=== PATIENT | female | born 1955 | race Hispanic/Latino ===

== ENCOUNTER 2018-11-03 09:02 | Outpatient (CLI) | payer OTHER ==
--- NOTE | 2018-11-03 10:57 | ULT ---
LIMITED LEFT BREAST ULTRASOUND: DATE: 11/03/2018. PROVIDED CLINICAL HISTORY: Abnormal mammogram, palpable abnormality. FINDINGS: Limited sonographic interrogation was performed at the 4 o'clock position of the left breast in the r egion of palpable and mammographic concern. There is an irregular lobulated hypoechoic mass measurin g at least 4.7 cm in greatest dimension at the 4 o'clock position of the left breast. There are inte rnal foci of increased echogenicity corresponding to the calcifications seen on mammography in this r egion. Limited sonographic interrogation of the left axilla demonstrates abnormally enlarged axillary lymph nodes. IMPRESSION: BIRADS category 5 - highly suspicious for malignancy. Ultrasound-guided biopsy of the [address] o[address] lesion and axillary lymph node recommended. Results and recommendations discussed with the patien t and questions answered. CODE CR POS: OFF
--- NOTE | 2018-11-03 11:16 | ULT ---
ULTRASOUND GUIDED LEFT BREAST BIOPSY: ULTRASOUND GUIDED LEFT AXILLARY LYMPH NODE BIOPSY: PROVIDED CLINICAL HISTORY: Left breast mass. Enlarged left axillary lymph nodes. TECHNIQUE: Informed consent was obtained from the patient. The patient was placed on the sonography table, in t he supine position, and the areas overlying the enlarged left axillary lymph node and left breast mas s were marked on the skin surface. These areas were prepped and draped in the usual sterile manner. Attention was first turned to the outer left breast lesion. The soft tissues were infiltrated with 1 % buffered Lidocaine. Under continuous sonographic guidance, multiple core samples were obtained. S ubsequently, a biopsy clip deployment device was advanced adjacent to the lesion, under ultrasound gu idance, and a biopsy site marker was deployed. The needle was withdrawn. There were no immediate co mplications. Attention was next turned to the left axillary enlarged lymph node. The soft tissues overlying this region were infiltrated with 1% buffered Lidocaine. Under continuous sonographic guidance, a core bi opsy device was advanced adjacent to the lesion, and multiple core samples were obtained. Subsequent ly, ultrasound guidance was utilizing to place a biopsy site marker within the lymph node. The needl e was withdrawn, and hemostasis achieved. No immediate complications. IMPRESSION: Technically successful ultrasound-guided biopsies of the left breast mass and enlarged left axillary lymph node. Please correlate with histology results to follow. POS: OFF
== END 2018-11-03 09:03 | disposition home or self-care (01) ==
LOC: BICMAMMO 09:02
PROVIDERS: ATTEND Nurse Practitioner Adult Health
DX: C50.212 Malignant neoplasm of upper-inner quadrant of left female breast (principal)
CPT/HCPCS: 19083; 19084; 77066; 88305; 88361; G0279

== ENCOUNTER 2018-11-16 08:31 | Outpatient (CLI) | payer OTHER ==
[2018-11-16] MEDS ORDERED: Iopamidol 300 61% 100 ML VIAL FS ONE (09:00)
--- NOTE | 2018-11-16 12:15 | CT ---
CT OF CHEST, ABDOMEN, AND PELVIS PERFORMED WITH INTRAVENOUS CONTRAST ENHANCEMENT: History: Left breast cancer with evidence for axillary involvement by recent biopsy. Comparison: Ultrasound guided biopsy performed 11-03-18. FINDINGS: The lungs are clear of any infiltrative process. There is a right upper lobe posterior segment pulmon angelita nodule seen on Axial image 31 measuring only 2-3 mm in size. There is a second similar sized nodu le, Axillary image 40 and Coronal image 56 which is along the minor fissure; as well as an approximat selina 3 mm nodule, Axial image 46 and a 2-3 mm nodule Axial image 47 which appear to lie along the javed r fissure or very close to the major fissure. No other definite additional nodules are seen. There is no significant mediastinal or hilar lymphadenopathy. There are small right axillary lymph no kary. There are pathologically enlarged appearing left axillary nodes, one of the larger nodes measure s approximately 13 mm in short axis dimension. Left breast mass is also demonstrated. CT OF ABDOMEN PERFORMED WITH CONTRAST ENHANCEMENT: The liver shows no focal lesions. The spleen is within normal limits of size. Pancreas and gallbladde r regions are unremarkable. Right and left adrenal glands and right and left kidneys are normal in appearance. There is no signif icant periaortic or mesenteric lymphadenopathy seen. CT OF PELVIS PERFORMED WITH CONTRAST ENHANCEMENT: No adenopathy, mass, or free fluid. Small punctate calcification within the uterus is probably on the basis of a fibroid. Review of osseous structures show arthritic changes in the lumbar spine and scoliotic change. No lyti c or blastic bony changes. IMPRESSION: 1. Left breast mass with left axillary adenopathy. 2. Several tiny pulmonary nodules noted on the right. Some of these are pleural based. These measure in the 2-3 mm range, nonspecific, but would require follow up. POS: [facility]
== END 2018-11-16 08:32 | disposition home or self-care (01) ==
LOC: SCSCT 08:31
PROVIDERS: ATTEND Internal Medicine Hematology & Oncology
DX: C50.512 Malignant neoplasm of lower-outer quadrant of left female breast (principal); N63.20 Unspecified lump in the left breast, unspecified quadrant; R59.0 Localized enlarged lymph nodes; R91.8 Other nonspecific abnormal finding of lung field
CPT/HCPCS: 71260; 74177; Q9967

== ENCOUNTER 2018-11-17 12:19 | Outpatient (CLI) | payer OTHER ==
[2018-11-17 13:35] LABS: #Eosinphils 0.2 thou/uL (0.0-0.7); #Lymphocytes 1.1 thou/uL (1.20-3.40); #Monocytes 0.5 thou/uL (0.11-0.59); #Neutrophils 3.1 thou/uL (1.40-6.50); %Basophils 0.6 % (0.0-1.0); %Lymphocytes 21.3 % (21.0-51.0); %Monocytes 10.5 % (0.0-10.0); %Neutrophils 63.5 % (42.0-75.0); Hemoglobin 14.2 g/dL (12.0-16.0); Mean Corpuscular HGB CONC 33.7 g/dL (32.0-36.0); Mean Corpuscular Hemoglobin 33.2 pg (27.0-31.0); Mean Corpuscular Volume 98.7 fL (78.0-98.0); Mean Platelet Volume 7.2 fL (7.4-10.4); Platelet Count 307 thou/uL (130-400); RBC Distribution Width 11.5 % (11.5-14.5); Red Blood Cell (RBC) Count 4.27 mill/uL (4.20-5.40); White Blood Cell (WBC) Count 4.9 thou/uL (4.8-10.8)
--- NOTE | 2018-11-17 15:26 | RAD ---
CHEST TWO VIEWS: HISTORY: OR followup. FINDINGS: The lungs appear clear. Vascular markings are normal. The heart and mediastinum are unremarkable. The osseous structures are in unremarkable. IMPRESSION: Unremarkable chest. POS: [facility]
== END 2018-11-17 12:20 | disposition home or self-care (01) ==
LOC: LABBT 12:19
PROVIDERS: ATTEND Specialist
DX: Z01.818 Encounter for other preprocedural examination (principal); C50.919 Malignant neoplasm of unspecified site of unspecified female breast
CPT/HCPCS: 71046; 85025

== ENCOUNTER 2018-11-21 12:13 | Day surgery (SDC) | payer OTHER ==
[2018-11-17 13:07] VITALS: BMI 30.9
[2018-11-21] MEDS ORDERED: Ketorolac Tromethamine 30 MG/ML VIAL ONE (12:27)
[2018-11-21] MEDS ORDERED: Levofloxacin 500 mg/D5W 100 ml Premix Bag ONE (12:27)
[2018-11-21] MEDS ORDERED: PROPOFOL 200 MG/20 ML VIAL ONE (12:57)
[2018-11-21] MEDS ORDERED: Bupivacaine/Epinephrine 0.25% 30 ML VIAL ONE (14:45)
[2018-11-21] MEDS ORDERED: Lidocaine 2% PF 5 ML VIAL ONE (14:45)
[2018-11-21] MEDS ORDERED: Fentanyl 100 MCG/2 ML VIAL ONE (14:56)
[2018-11-21] MEDS ORDERED: Midazolam HCl 2 mg/2 ml Vial ONE (14:56)
--- NOTE | 2018-11-21 16:22 | RAD ---
CHEST ONE VIEW: HISTORY: Mediport placement. COMPARISON: 11/17/2018 FINDINGS: The cardiac silhouette is magnified by projection. The pulmonary vasculature is unremarkable. The m ediastinum is midline. A right subclavian Mediport is now in place with the tip overlying the superi or vena cava. No evidence of pneumothorax. IMPRESSION: Right subclavian Mediport is in good radiographic position. POS: [facility]
--- NOTE | 2018-11-22 10:01 | OP ---
DATE OF PROCEDURE: 11/21/2018 PREOPERATIVE DIAGNOSIS: Breast cancer. POSTOPERATIVE DIAGNOSIS: Breast cancer. PROCEDURE PERFORMED: Placement of right subclavian low-profile power compatible MediPort. ANESTHESIA: General endotracheal anesthesia. INDICATIONS: The patient is a 62-year-old female. She presents with a large left breast cancer and was taken to the operative room at this time for MediPort placement for neoadjuvant chemotherapy. DESCRIPTION OF OPERATION: Informed consent was obtained. The patient was taken to the operating room where total intravenous anesthesia was obtained with the patient in supine position. Right periclavicular area was prepped with ChloraPrep and draped in sterile fashion. Local anesthetic was infiltrated and a large-gauge needle was passed under the clavicle in the subclavian vein. Guidewire was passed through the needle and fluoroscopically confirmed to enter the superior vena cava. Additional local anesthetic was infiltrated and transverse incision was created based on needle insertion site. A subcutaneous pocket was dissected inferiorly. Introducer dilator was passed over the guidewire under fluoroscopic guidance. The guidewire and dilator were removed, and the catheter was passed through the introducer. The tip of the catheter was positioned at the atriocaval junction and the catheter was trimmed to the appropriate length and secured to the locking hub of the MediPort. The port was then placed in the subcutaneous pocket where it was secured to the pectoral fascia with 2 interrupted sutures of 3-0 Prolene. The incision was then closed in layers with 3-0 and 4-0 Monocryl. Additional local anesthetic was infiltrated. The port was cannulated with a Jerome needle and it aspirated blood freely and was flushed with heparinized saline. Dermabond was placed externally on the skin incision. There were no complications. Blood loss was negligible. The patient tolerated the procedure well and was taken to recovery room in stable condition. FINDINGS: I used a low-profile power compatible MediPort. The patient's anatomy was within normal limits and there were no problems during the procedure. The patient had normal external and internal anatomy. A low-profile port was selected and placed uneventfully into the right subclavian vein. There was essentially no blood loss during the procedure and no complications. Postprocedure chest x-ray shows good placement of the port and catheter. Job ID: [id number]
== END 2018-11-21 17:00 | disposition home or self-care (01) ==
LOC: SDC 12:13
PROVIDERS: ATTEND Specialist
PROC: 0JH63WZ Insertion of Totally Implantable Vascular Access Device into Chest Subcutaneous Tissue and Fascia, Percutaneous Approach (ICD-10-PCS; principal; 2018-11-21)
DX: C50.512 Malignant neoplasm of lower-outer quadrant of left female breast (principal); C77.9 Secondary and unspecified malignant neoplasm of lymph node, unspecified; F41.9 Anxiety disorder, unspecified; M50.221 Other cervical disc displacement at C4-C5 level; Z17.1 Estrogen receptor negative status [ER-]; Z88.0 Allergy status to penicillin
CPT/HCPCS: 71045; 76000; C1788; J0131; J1642; J1885; J1956; J2001; J2250; J2704; J3010

== ENCOUNTER 2018-12-13 13:23 | Outpatient (CLI) | payer MEDICAID, OTHER | END 2018-12-13 13:24 | disposition home or self-care (01) | LOC: ULT 13:23 | PROVIDERS: ATTEND Internal Medicine Hematology & Oncology | DX: Z51.11 Encounter for antineoplastic chemotherapy (principal); C50.412 Malignant neoplasm of upper-outer quadrant of left female breast; Z79.899 Other long term (current) drug therapy; I08.3 Combined rheumatic disorders of mitral, aortic and tricuspid valves | CPT/HCPCS: 36415; 80053; 82248; 83615; 84100; 84550; 93306 ==

== ENCOUNTER 2018-12-14 08:27 | Day surgery (SDC) | payer MEDICAID ==
[~2018-12-14 08:27] MED LIST: CYCLOPHOSPHAMIDE IVPB SCH; DOXORUBICIN IVPB SCH; Dexamethasone 10 MG in Sodium Chloride 0.9% 50 ML IVPB SCH; Dexamethasone 10 MG/ML VIAL SLOW IVP SCH; Fosaprepitant Dimeglumine 150 MG in Sodium Chloride 0.9% 250 ML 145 ML IVPB SCH; PALONOSETRON HCL 0.05 MG/ML 5 ML VIAL IVP SCH; Palonosetron HCl 0.25 MG in Sodium Chloride 0.9% 50 ML IVPB SCH; SODIUM CHLORIDE 0.9% IVPB SCH
[2018-12-14] MEDS ORDERED: Sodium Chloride 0.9% 40 ML ONE (08:41)
[2018-12-14 09:30] VITALS: BP 174/85; TEMP 98.4
== END 2018-12-14 12:54 | disposition home or self-care (01) ==
LOC: ONC/OP 08:27
PROVIDERS: ATTEND Internal Medicine Hematology & Oncology
DX: Z51.11 Encounter for antineoplastic chemotherapy (principal); C50.412 Malignant neoplasm of upper-outer quadrant of left female breast; Z88.0 Allergy status to penicillin
CPT/HCPCS: 96367; 96375; 96413; 96417; J1100; J1453; J1642; J2469; J7050; J9000; J9070

== ENCOUNTER 2018-12-15 12:21 | Day surgery (SDC) | payer MEDICAID ==
[~2018-12-15 12:21] MED LIST changes: -CYCLOPHOSPHAMIDE IVPB SCH; -DOXORUBICIN IVPB SCH; -Dexamethasone 10 MG in Sodium Chloride 0.9% 50 ML IVPB SCH; -Dexamethasone 10 MG/ML VIAL SLOW IVP SCH; -Fosaprepitant Dimeglumine 150 MG in Sodium Chloride 0.9% 250 ML 145 ML IVPB SCH; -PALONOSETRON HCL 0.05 MG/ML 5 ML VIAL IVP SCH; +PEGFILGRASTIM-JMDB 6 MG/0.6 ML SYRINGE SQ SCH; -Palonosetron HCl 0.25 MG in Sodium Chloride 0.9% 50 ML IVPB SCH; -SODIUM CHLORIDE 0.9% IVPB SCH
[2018-12-15 12:32] VITALS: BP 151/79; TEMP 98.7
== END 2018-12-15 12:33 | disposition home or self-care (01) ==
LOC: ONC/OP 12:21
PROVIDERS: ATTEND Internal Medicine Hematology & Oncology
DX: C50.412 Malignant neoplasm of upper-outer quadrant of left female breast (principal); Z88.0 Allergy status to penicillin
CPT/HCPCS: 96372; Q5108

== ENCOUNTER 2018-12-28 08:46 | Day surgery (SDC) | payer MEDICAID ==
[~2018-12-28 08:46] MED LIST changes: +CYCLOPHOSPHAMIDE IVPB SCH; +DOXORUBICIN IVPB SCH; +Dexamethasone 10 MG/ML VIAL SLOW IVP SCH; +Fosaprepitant Dimeglumine 150 MG in Sodium Chloride 0.9% 250 ML 145 ML IVPB SCH; +PALONOSETRON HCL 0.05 MG/ML 5 ML VIAL IVP SCH; -PEGFILGRASTIM-JMDB 6 MG/0.6 ML SYRINGE SQ SCH; +Pegfilgrastim Onpro 6 MG/0.6 ML SQ SCH; +SODIUM CHLORIDE 0.9% IVPB SCH
[2018-12-28] MEDS ORDERED: Sodium Chloride 0.9% 20 ML ONE (08:50)
[2018-12-28 09:07] VITALS: BP 133/66; TEMP 98
== END 2018-12-28 11:50 | disposition home or self-care (01) ==
LOC: ONC/OP 08:46
PROVIDERS: ATTEND Internal Medicine Hematology & Oncology
DX: Z51.11 Encounter for antineoplastic chemotherapy (principal); C50.412 Malignant neoplasm of upper-outer quadrant of left female breast; Z88.0 Allergy status to penicillin
CPT/HCPCS: 96367; 96375; 96377; 96413; 96417; J1100; J1453; J1642; J2469; J2505; J7050; J9000; J9070

== ENCOUNTER 2018-12-29 11:44 | Day surgery (SDC) | payer MEDICAID ==
[~2018-12-29 11:44] MED LIST changes: -CYCLOPHOSPHAMIDE IVPB SCH; -DOXORUBICIN IVPB SCH; -Dexamethasone 10 MG/ML VIAL SLOW IVP SCH; -Fosaprepitant Dimeglumine 150 MG in Sodium Chloride 0.9% 250 ML 145 ML IVPB SCH; -PALONOSETRON HCL 0.05 MG/ML 5 ML VIAL IVP SCH; +PEGFILGRASTIM-JMDB 6 MG/0.6 ML SYRINGE SQ SCH; -Pegfilgrastim Onpro 6 MG/0.6 ML SQ SCH; -SODIUM CHLORIDE 0.9% IVPB SCH
[2018-12-29 12:40] VITALS: BP 153/70; TEMP 98.1
== END 2018-12-29 12:41 | disposition home or self-care (01) ==
LOC: ONC/OP 11:44
PROVIDERS: ATTEND Internal Medicine Hematology & Oncology
DX: C50.412 Malignant neoplasm of upper-outer quadrant of left female breast (principal); Z88.0 Allergy status to penicillin
CPT/HCPCS: 96372; Q5108

== ENCOUNTER 2019-01-11 10:13 | Day surgery (SDC) | payer MEDICAID ==
[~2019-01-11 10:13] MED LIST changes: +CYCLOPHOSPHAMIDE IVPB SCH; +DOXORUBICIN IVPB SCH; +Dexamethasone 10 MG/ML VIAL SLOW IVP SCH; +Fosaprepitant Dimeglumine 150 MG in Sodium Chloride 0.9% 250 ML 145 ML IVPB SCH; +PALONOSETRON HCL 0.05 MG/ML 5 ML VIAL IVP SCH; -PEGFILGRASTIM-JMDB 6 MG/0.6 ML SYRINGE SQ SCH; +SODIUM CHLORIDE 0.9% IVPB SCH
[2019-01-11] MEDS ORDERED: Sodium Chloride 0.9% 40 ML ONE (10:19)
== END 2019-01-11 13:21 | disposition home or self-care (01) ==
LOC: ONC/OP 10:13
PROVIDERS: ATTEND Internal Medicine Hematology & Oncology
DX: Z51.11 Encounter for antineoplastic chemotherapy (principal); C50.412 Malignant neoplasm of upper-outer quadrant of left female breast; Z88.0 Allergy status to penicillin; Z17.1 Estrogen receptor negative status [ER-]
CPT/HCPCS: 36415; 80053; 82248; 83615; 84100; 84550; 96367; 96375; 96413; 96417; J1100; J1453; J1642; J2469; J7050; J9000; J9070

== ENCOUNTER 2019-01-12 13:42 | Day surgery (SDC) | payer MEDICAID ==
[~2019-01-12 13:42] MED LIST changes: -CYCLOPHOSPHAMIDE IVPB SCH; -DOXORUBICIN IVPB SCH; -Dexamethasone 10 MG/ML VIAL SLOW IVP SCH; -Fosaprepitant Dimeglumine 150 MG in Sodium Chloride 0.9% 250 ML 145 ML IVPB SCH; -PALONOSETRON HCL 0.05 MG/ML 5 ML VIAL IVP SCH; +PEGFILGRASTIM-JMDB 6 MG/0.6 ML SYRINGE SQ SCH; -SODIUM CHLORIDE 0.9% IVPB SCH
[2019-01-12 13:58] VITALS: BP 127/68; TEMP 98.4
== END 2019-01-12 14:08 | disposition home or self-care (01) ==
LOC: ONC/OP 13:42
PROVIDERS: ATTEND Internal Medicine Hematology & Oncology
DX: Z51.11 Encounter for antineoplastic chemotherapy (principal); C50.412 Malignant neoplasm of upper-outer quadrant of left female breast; Z88.0 Allergy status to penicillin
CPT/HCPCS: 96372; Q5108

== ENCOUNTER 2019-01-25 13:54 | Day surgery (SDC) | payer OTHER ==
[~2019-01-25 13:54] MED LIST changes: +CYCLOPHOSPHAMIDE IVPB SCH; +DOXORUBICIN IVPB SCH; +Dexamethasone 10 MG/ML VIAL SLOW IVP SCH; +Fosaprepitant Dimeglumine 150 MG in Sodium Chloride 0.9% 250 ML 145 ML IVPB SCH; +PALONOSETRON HCL 0.05 MG/ML 5 ML VIAL IVP SCH; -PEGFILGRASTIM-JMDB 6 MG/0.6 ML SYRINGE SQ SCH; +SODIUM CHLORIDE 0.9% IVPB SCH
[2019-01-25] MEDS ORDERED: Sodium Chloride 0.9% 20 ML ONE (14:49)
[2019-01-25 16:24] VITALS: BP 172/80; TEMP 98.5
[2019-01-26] MEDS ORDERED: PEGFILGRASTIM-JMDB 6 MG/0.6 ML SYRINGE SQ SCH (01:15)
== END 2019-01-25 17:25 | disposition home or self-care (01) ==
LOC: ONC/OP 13:54
PROVIDERS: ATTEND Internal Medicine Hematology & Oncology
DX: Z51.11 Encounter for antineoplastic chemotherapy (principal); C50.412 Malignant neoplasm of upper-outer quadrant of left female breast
CPT/HCPCS: 36415; 80053; 82248; 83615; 84100; 84550; 96375; 96413; 96417; J1100; J1453; J1642; J2469; J7050; J9000; J9070

== ENCOUNTER 2019-01-26 15:48 | Day surgery (SDC) | payer OTHER ==
[2019-01-26] MEDS ORDERED: PEGFILGRASTIM-JMDB 6 MG/0.6 ML SYRINGE SQ SCH (16:00)
[2019-01-26 16:08] VITALS: BP 143/81; TEMP 97.9
== END 2019-01-26 16:09 | disposition home or self-care (01) ==
LOC: ONC/OP 15:48
PROVIDERS: ATTEND Internal Medicine Hematology & Oncology
DX: Z51.11 Encounter for antineoplastic chemotherapy (principal); C50.412 Malignant neoplasm of upper-outer quadrant of left female breast; Z88.0 Allergy status to penicillin
CPT/HCPCS: 96372; Q5108

== ENCOUNTER 2019-02-15 09:52 | Day surgery (SDC) | payer OTHER ==
[~2019-02-15 09:52] MED LIST changes: -CYCLOPHOSPHAMIDE IVPB SCH; -DOXORUBICIN IVPB SCH; -Dexamethasone 10 MG/ML VIAL SLOW IVP SCH; -Fosaprepitant Dimeglumine 150 MG in Sodium Chloride 0.9% 250 ML 145 ML IVPB SCH; +Ondansetron 2MG/ML MDV 10 MG, Dexamethasone Sod Phosphate 10 MG in Sodium Chloride 0.9%... IVP SCH; +PACLitaxel 150 MG in Sodium Chloride 0.9% 250 ML 250 ML IVPB SCH; -PALONOSETRON HCL 0.05 MG/ML 5 ML VIAL IVP SCH; -SODIUM CHLORIDE 0.9% IVPB SCH
[2019-02-15] MEDS ORDERED: Sodium Chloride 0.9% 20 ML ONE (09:53)
[2019-02-15 10:16] VITALS: BP 135/77; TEMP 98.3
== END 2019-02-15 11:50 | disposition home or self-care (01) ==
LOC: ONC/OP 09:52
PROVIDERS: ATTEND Internal Medicine Hematology & Oncology
DX: Z51.11 Encounter for antineoplastic chemotherapy (principal); C50.412 Malignant neoplasm of upper-outer quadrant of left female breast; Z88.0 Allergy status to penicillin
CPT/HCPCS: 96375; 96413; J1100; J1642; J2405; J7050; J9267

== ENCOUNTER 2019-02-22 09:57 | Day surgery (SDC) | payer OTHER ==
[2019-02-22 11:31] VITALS: BP 133/67; TEMP 98.5
== END 2019-02-22 12:49 | disposition home or self-care (01) ==
LOC: ONC/OP 09:57
PROVIDERS: ATTEND Internal Medicine Hematology & Oncology
DX: Z51.11 Encounter for antineoplastic chemotherapy (principal); C50.412 Malignant neoplasm of upper-outer quadrant of left female breast
CPT/HCPCS: 96375; 96413; J1100; J2405; J7050; J9267

== ENCOUNTER 2019-03-01 09:57 | Day surgery (SDC) | payer OTHER ==
[2019-03-01] MEDS ORDERED: Sodium Chloride 0.9% 20 ML ONE (10:10)
[2019-03-01 12:47] VITALS: BP 115/60; TEMP 97.8
== END 2019-03-01 16:28 | disposition home or self-care (01) ==
LOC: ONC/OP 09:57
PROVIDERS: ATTEND Internal Medicine Hematology & Oncology
DX: Z51.11 Encounter for antineoplastic chemotherapy (principal); C50.412 Malignant neoplasm of upper-outer quadrant of left female breast; Z88.0 Allergy status to penicillin
CPT/HCPCS: 96375; 96413; J1100; J1642; J2405; J7050; J9267

== ENCOUNTER 2019-03-09 08:32 | Day surgery (SDC) | payer OTHER ==
[~2019-03-09 08:32] MED LIST changes: +Ondansetron 2MG/ML MDV 10 MG, Dexamethasone 4 MG in Sodium Chloride 0.9% 50 ML IVP SCH; -Ondansetron 2MG/ML MDV 10 MG, Dexamethasone Sod Phosphate 10 MG in Sodium Chloride 0.9%... IVP SCH
[2019-03-09] MEDS ORDERED: Sodium Chloride 0.9% 20 ML ONE (08:42)
[2019-03-09 09:20] VITALS: BP 116/75; TEMP 98.8
[2019-03-09] MEDS ORDERED: [UNRECOGNIZED DRUG - OTHER] IVP SCH (09:30)
[2019-03-09] MEDS ORDERED: ONDANSETRON IVP SCH (09:30)
[2019-03-09] MEDS ORDERED: DEXAMETHASONE SOD PHOSPHATE IVP SCH (09:30)
== END 2019-03-09 14:05 | disposition home or self-care (01) ==
LOC: ONC/OP 08:32
PROVIDERS: ATTEND Internal Medicine Hematology & Oncology
DX: Z51.11 Encounter for antineoplastic chemotherapy (principal); C50.412 Malignant neoplasm of upper-outer quadrant of left female breast; Z88.0 Allergy status to penicillin
CPT/HCPCS: 96365; 96375; J1100; J1642; J2405; J7050; J9267

== ENCOUNTER 2019-03-15 14:06 | Day surgery (SDC) | payer OTHER ==
[~2019-03-15 14:06] MED LIST changes: +DEXAMETHASONE SOD PHOSPHATE IVPB SCH; +ONDANSETRON IVPB SCH; -Ondansetron 2MG/ML MDV 10 MG, Dexamethasone 4 MG in Sodium Chloride 0.9% 50 ML IVP SCH; +[UNRECOGNIZED DRUG - OTHER] IVPB SCH
[2019-03-15] MEDS ORDERED: Sodium Chloride 0.9% 20 ML ONE (14:07)
[2019-03-15 15:42] VITALS: BP 122/75; TEMP 98.6
== END 2019-03-15 16:48 | disposition home or self-care (01) ==
LOC: ONC/OP 14:06
PROVIDERS: ATTEND Internal Medicine Hematology & Oncology
DX: Z51.11 Encounter for antineoplastic chemotherapy (principal); C50.412 Malignant neoplasm of upper-outer quadrant of left female breast; Z17.1 Estrogen receptor negative status [ER-]; Z88.0 Allergy status to penicillin
CPT/HCPCS: 36415; 80053; 82248; 83615; 84100; 84550; 96375; 96413; J1100; J1642; J2405; J7050; J9267

== ENCOUNTER 2019-03-21 08:57 | Day surgery (SDC) | payer OTHER ==
[2019-03-21] MEDS ORDERED: Sodium Chloride 0.9% 20 ML ONE (09:03)
== END 2019-03-21 13:57 | disposition home or self-care (01) ==
LOC: ONC/OP 08:57
PROVIDERS: ATTEND Internal Medicine Hematology & Oncology
DX: Z51.11 Encounter for antineoplastic chemotherapy (principal); C50.412 Malignant neoplasm of upper-outer quadrant of left female breast; Z88.0 Allergy status to penicillin
CPT/HCPCS: 96375; 96413; J1100; J1642; J2405; J7050; J9267

== ENCOUNTER 2019-03-29 10:15 | Day surgery (SDC) | payer OTHER ==
[2019-03-29] MEDS ORDERED: Sodium Chloride 0.9% 20 ML ONE (10:20)
== END 2019-03-29 12:47 | disposition home or self-care (01) ==
LOC: ONC/OP 10:15
PROVIDERS: ATTEND Internal Medicine Hematology & Oncology
DX: Z51.11 Encounter for antineoplastic chemotherapy (principal); C50.412 Malignant neoplasm of upper-outer quadrant of left female breast; Z88.0 Allergy status to penicillin
CPT/HCPCS: 96375; 96413; J1100; J1642; J2405; J7050; J9267

== ENCOUNTER 2019-04-05 10:40 | Day surgery (SDC) | payer OTHER ==
[2019-04-05] MEDS ORDERED: Sodium Chloride 0.9% 20 ML ONE (10:41)
[2019-04-05 15:31] VITALS: BP 126/70; TEMP 97.8
== END 2019-04-05 15:31 | disposition home or self-care (01) ==
LOC: ONC/OP 10:40
PROVIDERS: ATTEND Internal Medicine Hematology & Oncology
DX: Z51.11 Encounter for antineoplastic chemotherapy (principal); C50.412 Malignant neoplasm of upper-outer quadrant of left female breast; Z88.0 Allergy status to penicillin
CPT/HCPCS: 96375; 96413; J1100; J1642; J2405; J7050; J9267

== ENCOUNTER 2019-04-12 10:08 | Day surgery (SDC) | payer OTHER ==
[2019-04-12] MEDS ORDERED: Sodium Chloride 0.9% 20 ML ONE (10:19)
[2019-04-12 12:50] VITALS: BP 126/70; TEMP 98.1
== END 2019-04-12 12:56 | disposition home or self-care (01) ==
LOC: ONC/OP 10:08
PROVIDERS: ATTEND Internal Medicine Hematology & Oncology
DX: Z51.11 Encounter for antineoplastic chemotherapy (principal); C50.412 Malignant neoplasm of upper-outer quadrant of left female breast; Z88.0 Allergy status to penicillin
CPT/HCPCS: 80053; 82248; 83615; 84100; 84550; 96375; 96413; J1100; J1642; J2405; J7050; J9267

== ENCOUNTER 2019-04-19 09:48 | Day surgery (SDC) | payer OTHER ==
[2019-04-19] MEDS ORDERED: Sodium Chloride 0.9% 20 ML ONE (09:59)
[2019-04-19 10:07] VITALS: BP 120/58; TEMP 98.6
== END 2019-04-19 12:00 | disposition home or self-care (01) ==
LOC: ONC/OP 09:48
PROVIDERS: ATTEND Internal Medicine Hematology & Oncology
DX: Z51.11 Encounter for antineoplastic chemotherapy (principal); C50.412 Malignant neoplasm of upper-outer quadrant of left female breast; Z88.0 Allergy status to penicillin
CPT/HCPCS: 96375; 96413; J1100; J1642; J2405; J7050; J9267

== ENCOUNTER 2019-04-26 10:56 | Day surgery (SDC) | payer OTHER ==
[~2019-04-26 10:56] MED LIST changes: -DEXAMETHASONE SOD PHOSPHATE IVPB SCH; -ONDANSETRON IVPB SCH; -PACLitaxel 150 MG in Sodium Chloride 0.9% 250 ML 250 ML IVPB SCH; +Sodium Chloride 0.9% 20 ML ONE; -[UNRECOGNIZED DRUG - OTHER] IVPB SCH
[2019-04-26] MEDS: Dexamethasone 4 MG, Ondansetron 2MG/ML MDV 10 MG in Sodium Chloride 0.9% 50 ML SLOW IVP SCH (10:59)
[2019-04-26] MEDS: PACLitaxel 150 MG in Sodium Chloride 0.9% 250 ML 250 ML IVPB SCH (11:09)
[2019-04-26 12:20] VITALS: BP 123/66; TEMP 98.8
== END 2019-04-26 13:34 | disposition home or self-care (01) ==
LOC: ONC/OP 10:56
PROVIDERS: ATTEND Internal Medicine Hematology & Oncology
DX: Z51.11 Encounter for antineoplastic chemotherapy (principal); C50.412 Malignant neoplasm of upper-outer quadrant of left female breast; Z88.0 Allergy status to penicillin
CPT/HCPCS: 96375; 96413; J1100; J1642; J2405; J7050; J9267

== ENCOUNTER 2019-05-03 10:39 | Day surgery (SDC) | payer OTHER ==
[~2019-05-03 10:39] MED LIST changes: +Dexamethasone 4 MG, Ondansetron 2MG/ML MDV 10 MG in Sodium Chloride 0.9% 50 ML SLOW IVP SCH; +PACLitaxel 150 MG in Sodium Chloride 0.9% 250 ML 250 ML IVPB SCH; -Sodium Chloride 0.9% 20 ML ONE
[2019-05-03] MEDS ORDERED: Sodium Chloride 0.9% 20 ML ONE (10:53)
[2019-05-03 11:27] VITALS: BP 142/63; TEMP 98.3
== END 2019-05-03 13:05 | disposition home or self-care (01) ==
LOC: ONC/OP 10:39
PROVIDERS: ATTEND Internal Medicine Hematology & Oncology
DX: Z51.11 Encounter for antineoplastic chemotherapy (principal); C50.412 Malignant neoplasm of upper-outer quadrant of left female breast; Z88.0 Allergy status to penicillin
CPT/HCPCS: 96375; 96413; J1100; J1642; J2405; J7050; J9267

== ENCOUNTER 2019-05-11 13:51 | Outpatient (CLI) | payer OTHER ==
[2019-05-11 14:49] LABS: #Basophils 0.1 thou/uL (0.0-0.2); #Eosinphils 0.1 thou/uL (0.0-0.7); #Lymphocytes 0.9 thou/uL (1.20-3.40); #Monocytes 0.6 thou/uL (0.11-0.59); #Neutrophils 2.4 thou/uL (1.40-6.50); %Basophils 1.4 % (0.0-1.0); %Eosinophils 2.1 % (0.0-10.0); %Lymphocytes 22.6 % (21.0-51.0); %Monocytes 14.9 % (0.0-10.0); Hemoglobin 12.8 g/dL (12.0-16.0); Mean Corpuscular HGB CONC 33.3 g/dL (32.0-36.0); Mean Corpuscular Hemoglobin 33.6 pg (27.0-31.0); Mean Platelet Volume 6.6 fL (7.4-10.4); Platelet Count 279 thou/uL (130-400); Red Blood Cell (RBC) Count 3.82 mill/uL (4.20-5.40); White Blood Cell (WBC) Count 4.1 thou/uL (4.8-10.8)
[2019-05-11 15:08] LABS: Anion Gap 14 mmol/L (10-20); BUN (Urea Nitrogen) 12 mg/dL (9.8-20.1); Calc. Creatinine Clearance 0 mL/min (70-130); Calcium 9.6 mg/dL (7.8-10.44); Carbon Dioxide 22 mmol/L (23-31); Chloride 104 mmol/L (98-107); Estimated GFR-MDRD Greater than 90; Glucose 93 mg/dL (80-115); Potassium 4.2 mmol/L (3.5-5.1); Sodium 136 mmol/L (136-145)
== END 2019-05-11 13:52 | disposition home or self-care (01) ==
LOC: LABBT 13:51
PROVIDERS: ATTEND Specialist
DX: Z01.818 Encounter for other preprocedural examination (principal); C50.912 Malignant neoplasm of unspecified site of left female breast
CPT/HCPCS: 80048; 85025; 93005; 93010

== ENCOUNTER 2019-05-17 07:18 | Day surgery (SDC) | payer OTHER ==
[2019-05-11 14:08] VITALS: BMI 30.7
--- NOTE | 2019-05-17 09:03 | NM ---
NM Lymphoscintigraphy HISTORY: Malignant neoplasm of unspecified site of the left female breast. RADIOPHARMACEUTICAL: 406 uCi of technetium 99m filtered sulfur colloid. Left periareolar injection i n divided doses. FINDINGS: There are multiple foci of increased uptake in the left axilla. No visualization of the lym ph nodes in the internal mammary chains on either side or the right right axilla are seen. IMPRESSION: [place] lymph node(s) in the left axilla.
[2019-05-17] MEDS ORDERED: Midazolam HCl 2 mg/2 ml Vial ONE (10:31)
[2019-05-17] MEDS ORDERED: Levofloxacin 500 mg/D5W 100 ml Premix Bag ONE (10:32)
[2019-05-17] MEDS ORDERED: Ketorolac Tromethamine 30 MG/ML VIAL ONE (10:32)
[2019-05-17] MEDS ORDERED: Dexamethasone 20 MG/5 ML VIAL ONE (10:46)
[2019-05-17] MEDS ORDERED: PROPOFOL 200 MG/20 ML VIAL ONE (10:46)
[2019-05-17] MEDS ORDERED: Ondansetron PF 4 MG/2 ML Vial ONE (10:46)
[2019-05-17] MEDS ORDERED: Lidocaine 1% PF 5 ML VIAL ONE (10:46)
[2019-05-17] MEDS ORDERED: Bupivacaine/Epinephrine 0.25% 30 ML VIAL ONE ×2 (14:47→16:31)
[2019-05-17] MEDS ORDERED: Isosulfan Blue 50 MG/5 ML VIAL ONE (14:47)
[2019-05-17] MEDS ORDERED: Fentanyl 100 MCG/2 ML VIAL ONE ×3 (14:54→17:23)
--- NOTE | 2019-05-17 17:06 | MMO ---
Radiograph specimen one view: DATE: 05/17/2019 HISTORY: Left breast biopsy positive for cancer. Now excisional biopsy. FINDINGS: The specimen contains multiple suspicious calcifications and what appears to be postbiopsy clip, as w ell as localization wire. IMPRESSION: Successful excisional biopsy
[2019-05-17] MEDS ORDERED: Sodium Chloride 0.9% 100 ML ONE (19:40)
--- NOTE | 2019-05-18 10:18 | OP ---
DATE OF PROCEDURE: 05/17/2019 PREOPERATIVE DIAGNOSIS: Left breast cancer with history of left axillary lymph node metastasis, status post neoadjuvant chemotherapy. POSTOPERATIVE DIAGNOSIS: Left breast cancer with history of left axillary lymph node metastasis, status post neoadjuvant chemotherapy. PROCEDURE PERFORMED: Left axillary sentinel lymph node biopsy, left ultrasound-guided needle localization, left breast needle localized lumpectomy. ANESTHESIA: General endotracheal. INDICATIONS: The patient is a 63-year-old female. She had presented with a large left breast cancer centered on the 4 o'clock radian of the left breast. She had obvious lymph node metastasis. Due to the advanced nature of her disease, neoadjuvant chemotherapy was recommended. MediPort was placed for this, and she has completed a course of chemotherapy. She returns at this time with the cancer much smaller and no evidence of adenopathy by palpation or ultrasonography. After discussing options, she has elected to proceed with breast conservation surgery, although she recognizes that there is a chance that she could have positive margins requiring further surgery and possibly a mastectomy. She also understands that positive lymph nodes identified intraoperatively would require an axillary node dissection. DESCRIPTION OF PROCEDURE: Informed consent was obtained. The patient was taken to the operating room, where general endotracheal anesthesia was obtained with the patient in supine position. Lymphoscintigraphy had been performed preoperatively identifying left axillary sentinel lymph nodes. Left breast and axilla were prepped with ChloraPrep and draped in sterile fashion. 3 mL of isosulfan blue was infiltrated in the left periareolar subdermal tissue and massaged for 5 minutes. Attention was turned to the left axilla. Local anesthetic was infiltrated using 0.25% Marcaine with epinephrine and a transverse incision was created in the inferior aspect of the axilla. Dissection was carried through the skin and subcutaneous tissue. Dissection was carried down through the superficial axillary fascia. The Neoprobe was utilized to identify areas of maximum radio intensity. Utilizing this, I was able to identify 4 separate lymph nodes that were radioactive. Interestingly, none of them were blue-stained. Each lymph node was identified and dissected circumferentially and all investing tissue was divided between clamps and 3-0 silk ties. Meticulous hemostasis obtained within the axilla. There was no evidence of any other significant radio activity remained within the axilla, and as mentioned, no blue dye was seen within the axilla. The incision was closed in layers with 3-0 and 4-0 Monocryl and Dermabond was placed externally. Additional local anesthetic was infiltrated into the biopsy cavity during closure. Attention was turned to the left breast. Ultrasound was utilized to identify residual area of concern at the 4 o'clock radian. As mentioned, this was much smaller than the lesion had been when it was first diagnosed. I marked the location of the malignancy cutaneously in a grid type fashion. I then passed a localizing wire through the center of the lesion in a medial to lateral fashion. Local anesthetic was infiltrated, and an incision was created incorporating the wire and extending over the lesion. Dissection was carried through skin and subcutaneous tissue. Fairly thick flaps were raised superiorly and laterally. The patient's malignancy had been concerning for extending medially into the subareolar tissue. Therefore, I decided to incorporate additional medial tissue to the area of the malignancy. I therefore began my dissection medial to the wire entry site. I extended down to the breast tissue and then dissected a lump extending laterally along the course of the wire incorporating a wide core of tissue around the localizing wire. The specimen was removed intact. Marking sutures were placed in the usual fashion. The specimen was passed off for specimen mammography, which revealed that the biopsy clip as well as the calcifications were removed in continuity with the biopsy wire. Meticulous hemostasis was obtained within the wound. It was closed in layers with 3-0 and 4-0 Monocryl suture. Dermabond was placed externally. Additional local anesthetic was infiltrated during closure. There were no complications. The patient tolerated the procedure well and was taken to recovery room in stable condition. Job ID: [id number]
== END 2019-05-17 19:45 | disposition home or self-care (01) ==
LOC: SDC 07:18
PROVIDERS: ATTEND Specialist
PROC: 07B60ZX Excision of Left Axillary Lymphatic, Open Approach, Diagnostic (ICD-10-PCS; principal; 2019-05-17)
PROC: 07B30ZX Excision of Right Upper Extremity Lymphatic, Open Approach, Diagnostic (ICD-10-PCS; principal; 2019-05-17)
PROC: 0HBU0ZZ Excision of Left Breast, Open Approach (ICD-10-PCS; principal; 2019-05-17)
DX: C50.512 Malignant neoplasm of lower-outer quadrant of left female breast (principal); Z17.1 Estrogen receptor negative status [ER-]; Z88.0 Allergy status to penicillin
CPT/HCPCS: 76098; 78195; 88307; 88331; 88334; 88341; 88342; A9541; J0131; J0690; J1100; J1642; J1885; J1956; J2001; J2250; J2405; J2704; J3010; J3490; Q9968

== ENCOUNTER 2019-07-12 09:49 | Outpatient (CLI) | payer OTHER ==
[2019-07-12 10:12] LABS: Estimated GFR-MDRD - POC Greater than 90
--- NOTE | 2019-07-12 13:22 | CT ---
CT FACIAL BONES WITH IV CONTRAST: INDICATIONS: There is a palpable cheek nodule on the left, which is marked with a skin marker. History of breast c ancer. FINDINGS: Evaluation of the left check at the area of concern is severely degraded due to spray artifact from t he dental appliances. No underlying soft tissue mass identified at this location. The buccal tissues of the mandible and maxilla cannot be adequately assessed due to the spray artifact. The buccal tissu es just above and below the intense artifact appear unremarkable. The paranasal sinuses are well aerated. There is mucosal edema with evidence of a mucus retention cys t in the floor of both maxillary sinuses. The frontal air cells are small but are well aerated. The e thmoids are well aerated with no significant mucosal edema. The sphenoids are clear. The maxillary si nuses are otherwise clear and well aerated. The infundibula are patent bilaterally. Slight nasal sept al deviation to the right. Review of soft tissues show a normal appearing nasopharynx and oropharynx. The base of the tongue jennifer ears unremarkable. IMPRESSION: 1. Area of concern in the left cheek where a skin marker is placed is severely degraded by diffuse sp ray artifact from dental appliances. No definite subcutaneous mass is seen however clinical correlati on is necessary if there is a palpable mass in this region. The buccal tissues above and below the ar ea of intense artifact appear unremarkable. 2. There are mucosal changes in the floor of both maxillary sinuses with evidence of mucus retention cysts bilaterally. POS: [facility]
== END 2019-07-12 09:50 | disposition home or self-care (01) ==
LOC: BICCT 09:49
PROVIDERS: ATTEND Specialist
DX: R22.0 Localized swelling, mass and lump, head (principal); J34.1 Cyst and mucocele of nose and nasal sinus
CPT/HCPCS: 70487; 82565

== ENCOUNTER 2020-05-09 13:18 | Outpatient (CLI) | payer OTHER ==
--- NOTE | 2020-05-09 14:05 | MMO ---
Bilateral MAMMO Bilat Diag [facility]. CLINICAL HISTORY: Patient is 64 years old and is seen for diagnostic exam. The patient has no family history of breast cancer. The patient has a history of Ultrasound guided core biopsy procedure revealed invasive ductal left breast carcinoma in October,. The patient has a history of left Lumpectomy in April, - invasive ductal carcinoma and left Ultrasound Guided Core Biopsy in October, - invasive ductal carcinoma. VIEWS: The views performed were: bilateral craniocaudal with tomosynthesis; bilateral mediolateral oblique with tomosynthesis; and bilateral mediolateral with tomosynthesis. FILMS COMPARED: The present examination has been compared to a prior imaging study performed at [facility] on 11/03/2018. This study has been interpreted with the assistance of computer-aided detection. MAMMOGRAM FINDINGS: There are scattered fibroglandular densities. There is an area of architectural distortion with associated post-surgical scar seen in the outer region of the left breast. There are no suspicious masses, suspicious calcifications, or new areas of architectural distortion. IMPRESSION: A ROUTINE FOLLOW-UP MAMMOGRAM IN 1 YEAR IS RECOMMENDED. THE RESULTS OF THIS EXAM WERE SENT TO THE PATIENT. ACR BI-RADS Category 2 - Benign finding MAMMOGRAPHY NOTE: 1. A negative mammogram report should not delay a biopsy if a dominant of clinically suspicious mass is present. 2. Approximately 10% to 15% of breast cancers are not detected by mammography. 3. Adenosis and dense breasts may obscure an underlying neoplasm. Reported by: AMBREEN JANE MD Electonically Signed: [id number]
== END 2020-05-09 13:19 | disposition home or self-care (01) ==
LOC: BICMAMMO 13:18
PROVIDERS: ATTEND Specialist
DX: C50.912 Malignant neoplasm of unspecified site of left female breast (principal)
CPT/HCPCS: 77066; G0279

== ENCOUNTER 2020-07-07 14:20 | Outpatient (CLI) | payer OTHER ==
--- NOTE | 2020-07-07 13:47 | MRI ---
EXAM: MRI right knee PROVIDED CLINICAL HISTORY: Pain status post injury COMPARISON: None FINDINGS: There is a depressed fracture of the lateral tibial plateau with minimal intra-articular extension ap parent. There is linear signal alteration involving the medial tibial plateau suggesting trabecular microfracture. There is extensive marrow edema within the proximal tibia, predominating laterally. The anterior cruciate ligament, posterior cruciate ligament, medial collateral ligament and lateral c ollateral ligamentous complex demonstrate an intact MR appearance, as does the extensor mechanism. There is a complex tear involving the body-anterior horn junction of the lateral meniscus. The medial meniscus demonstrates no evidence for tear. No focal articular cartilage defect is apparent. There is a small knee joint effusion with small Gaming's cyst. Regional marrow and muscular signal appear otherwise unremarkable. IMPRESSION: 1. Depressed lateral tibial plateau fracture and probable trabecular microfracture involving the medi al tibial plateau. 2. Lateral meniscal tear. 3. Small knee joint effusion with Gaming's cyst.
== END 2020-07-07 14:21 | disposition home or self-care (01) ==
LOC: BICMRI 14:20
PROVIDERS: ATTEND Orthopaedic Surgery
DX: M25.561 Pain in right knee (principal); M17.11 Unilateral primary osteoarthritis, right knee; S82.141A Displaced bicondylar fracture of right tibia, initial encounter for closed fracture; S83.281A Other tear of lateral meniscus, current injury, right knee, initial encounter; M25.461 Effusion, right knee; M71.21 Synovial cyst of popliteal space [Baker], right knee

== ENCOUNTER 2023-08-29 06:12 | Day surgery (SDC) | payer MEDICARE, OTHER ==
[2023-08-26 14:17] VITALS: BMI 27.1
[2023-08-29] MEDS ORDERED: Heparin 10,000 UNITS/ 10 ML VIAL ONE (06:15)
[2023-08-29] MEDS ORDERED: Lidocaine 1% (PF) 30 ML VIAL ONE (06:15)
[2023-08-29] MEDS ORDERED: fentaNYL 50 mcg/mL 1 mL Vial ONE (06:15)
[2023-08-29] MEDS ORDERED: Midazolam HCl 2 mg/2 ml Vial ONE (06:15)
[2023-08-29] MEDS ORDERED: Verapamil 5 MG/2 ML VIAL ONE (07:19)
[2023-08-29] MEDS ORDERED: Nitroglycerin 50 MG/250 ML BOT 250 ML ONE (07:19)
[2023-08-29] MEDS ORDERED: hydrALAZINE 20 MG/ML VIAL ONE (08:45)
[2023-08-29] MEDS ORDERED: Iopamidol 370 76% 100 ML VIAL ONE (14:01)
== END 2023-08-29 14:05 | disposition home or self-care (01) ==
LOC: SDC 06:12
PROVIDERS: ATTEND Internal Medicine Cardiovascular Disease
PROC: B205YZZ Plain Radiography of Left Heart using Other Contrast (ICD-10-PCS; principal; 2023-08-29)
DX: I42.9 Cardiomyopathy, unspecified (principal); I44.7 Left bundle-branch block, unspecified; I50.20 Unspecified systolic (congestive) heart failure; E78.00 Pure hypercholesterolemia, unspecified; F15.90 Other stimulant use, unspecified, uncomplicated; Z88.0 Allergy status to penicillin; Z96.651 Presence of right artificial knee joint
CPT/HCPCS: 76999; 93458; C1769; C1894; J0360; J3010; 99152; J1644; J2001; J2250; Q9967

== ENCOUNTER 2024-04-13 10:15 | Outpatient (CLI) | payer MEDICARE, OTHER | END 2024-04-13 10:16 | disposition home or self-care (01) | LOC: PET 10:15 | PROVIDERS: ATTEND Internal Medicine Hematology & Oncology | DX: C50.412 Malignant neoplasm of upper-outer quadrant of left female breast (principal); C79.31 Secondary malignant neoplasm of brain; R91.1 Solitary pulmonary nodule; R59.0 Localized enlarged lymph nodes; M43.8X6 Other specified deforming dorsopathies, lumbar region | CPT/HCPCS: 78815; A9552 ==

== ENCOUNTER 2024-04-16 19:55 | Inpatient (IN) | payer MEDICARE, OTHER ==
[2024-04-16] MEDS ORDERED: Acetaminophen 650 MG Suppository PR PRN (20:33)
[2024-04-16] MEDS ORDERED: Ondansetron ODT 4 MG TAB PO PRN (20:33)
[2024-04-16] MEDS ORDERED: Ondansetron PF 4 MG/2 ML Vial IVP PRN (20:33)
[2024-04-16 21:46] LABS: #Basophils Less than 0.03 10x3/uL (0.0-0.2); #Eosinphils Less than 0.03 10x3/uL (0.0-0.7); %Monocytes 1.7 % (0.0-10.0); %Neutrophils 87.8 % (42.0-75.0); Hematocrit 40.4 % (36.0-47.0); Hemoglobin 13.6 g/dL (12.0-16.0); Mean Corpuscular HGB CONC 33.7 g/dL (32.0-36.0); Mean Corpuscular Hemoglobin 32.1 pg (27.0-31.0); Mean Corpuscular Volume 95.3 fL (78.0-98.0); Mean Platelet Volume 8.4 fL (7.4-10.4); Platelet Count 239 10x3/uL (130-400); RBC Distribution Width 13.4 % (11.5-14.5); Red Blood Cell (RBC) Count 4.24 mill/uL (4.20-5.40)
[2024-04-16] MEDS: Famotidine 20 MG TAB PO SCH (21:49)
[2024-04-16] MEDS: Famotidine/PF 20 mg/2ml Vial SLOW IVP SCH (21:50)
[2024-04-16 21:53] LABS: Anion Gap 15 mmol/L (10-20); BUN (Urea Nitrogen) 10 mg/dL (9.8-20.1); Calc. Creatinine Clearance 105 mL/min (70-130); Calcium 9.6 mg/dL (7.8-10.44); Carbon Dioxide 21 mmol/L (23-31); Chloride 106 mmol/L (98-107); Estimated GFR 97; Glucose 140 mg/dL (80-115); Sodium 138 mmol/L (136-145)
[2024-04-17] MEDS ORDERED: Lorazepam 2 MG/ML VIAL SLOW IVP PRN (00:03)
[2024-04-17 04:13] VITALS: BMI 27.2
[2024-04-17 05:25] LABS: ALT (SGPT) 16 U/L (8-55); AST (SGOT) 14 U/L (5-34); Alkaline Phosphatase 89 U/L (40-110); Anion Gap 12 mmol/L (10-20); BUN (Urea Nitrogen) 11 mg/dL (9.8-20.1); Bilirubin, Total 0.6 mg/dL (0.2-1.2); Calc. Creatinine Clearance 114 mL/min (70-130); Calcium 9.3 mg/dL (7.8-10.44); Carbon Dioxide 22 mmol/L (23-31); Chloride 106 mmol/L (98-107); Estimated GFR 99; Globulin 3.2 g/dL (2.4-3.5); Glucose 123 mg/dL (80-115); Potassium 4.1 mmol/L (3.5-5.1); Protein, Total 6.2 g/dL (5.8-8.1); Sodium 136 mmol/L (136-145)
[2024-04-17] MEDS: Acetaminophen 325 MG TAB PO PRN (05:39)
[2024-04-17] MEDS: Carvedilol 3.125 MG TAB PO SCH (09:16)
[2024-04-17] MEDS: Polyethylene Glycol 3350 17 GM Packet PO PRN (11:18)
[2024-04-17] MEDS: Dexamethasone 4 MG TAB PO SCH (11:19)
[2024-04-17] MEDS: levETIRAcetam 500 MG TAB PO SCH (11:19)
[2024-04-17 17:07] VITALS: BP 138/78; TEMP 98.6
[2024-04-17] MEDS ORDERED: Docusate 100 MG CAP PO SCH (21:00)
[2024-04-17] MEDS ORDERED: levETIRAcetam 500 MG TAB PO SCH (21:00)
[2024-04-18] MEDS ORDERED: Dexamethasone 4 MG TAB PO SCH (08:00)
== END 2024-04-17 20:26 | disposition home or self-care (01) | DRG 55 ==
LOC: 2SE 19:55
PROVIDERS: ADMIT Family Medicine; ATTEND Internal Medicine
DX: C79.31 Secondary malignant neoplasm of brain (principal); I50.22 Chronic systolic (congestive) heart failure; G40.409 Other generalized epilepsy and epileptic syndromes, not intractable, without status epilepticus; Z66 Do not resuscitate; C50.919 Malignant neoplasm of unspecified site of unspecified female breast; I11.0 Hypertensive heart disease with heart failure; Z96.651 Presence of right artificial knee joint; Z88.0 Allergy status to penicillin; Z79.899 Other long term (current) drug therapy; Z98.890 Other specified postprocedural states; Z92.21 Personal history of antineoplastic chemotherapy; Z92.3 Personal history of irradiation
CPT/HCPCS: 36415; 70450; 80053; J8540

== ENCOUNTER 2024-06-27 20:44 | Inpatient (IN) | payer MEDICARE, OTHER ==
[~2024-06-27 20:44] MED LIST changes: -Dexamethasone 4 MG, Ondansetron 2MG/ML MDV 10 MG in Sodium Chloride 0.9% 50 ML SLOW IVP SCH; +Iopamidol-370 76% 500 ML MDV (1 ML CHARGE) ONE; -PACLitaxel 150 MG in Sodium Chloride 0.9% 250 ML 250 ML IVPB SCH
[2024-06-27 21:49] LABS: Bacteria/HPF None Seen HPF (None Seen); Bilirubin Negative (Negative); Blood, Urine Negative (Negative); CAUTI Indications for Culture < 2yrs of age; Clarity Clear (Clear); Glucose, Urine (Dipstick) Normal (Negative); Ketone, Urine Negative (Negative); Leukocyte 25 Leu/uL (Negative); Nitrite Negative (Negative); Protein, Urine (Dipstick) Negative (Neg-Trace); RBC/HPF 0-3 HPF (0-3); Specific Gravity, Urine 1.008 (1.002-1.036); Squamous Epithelial None Seen HPF (0-3); Urobilinogen Normal mg/dL (Less than 2); WBC/HPF 0-3 HPF (0-3); pH, Urine 6.5 (5.0-9.0)
[2024-06-27 21:52] LABS: Urine Culture Reflex No No; Urine Culture Reflex Yes Yes
[2024-06-27 22:18] LABS: #Basophils 0.04 10x3/uL (0.0-0.2); %Basophils 0.9 % (0.0-1.0); %Eosinophils 2.5 % (0.0-10.0); %Lymphocytes 19.9 % (21.0-51.0); %Monocytes 16.5 % (0.0-10.0); Hematocrit 35.7 % (36.0-47.0); Mean Corpuscular HGB CONC 33.6 g/dL (32.0-36.0); Mean Corpuscular Hemoglobin 31.4 pg (27.0-31.0); Mean Corpuscular Volume 93.5 fL (78.0-98.0); Mean Platelet Volume 8.3 fL (7.4-10.4); Platelet Count 351 10x3/uL (130-400); RBC Distribution Width 13.2 % (11.5-14.5); Red Blood Cell (RBC) Count 3.82 mill/uL (4.20-5.40)
[2024-06-27 22:31] LABS: INR-International Normal Ratio 1.2; Prothrombin Time 15.2 sec (12.0-14.7)
[2024-06-27 22:34] LABS: ALT (SGPT) 7 U/L (8-55); AST (SGOT) 13 U/L (5-34); Albumin 3.5 g/dL (3.4-4.8); Alkaline Phosphatase 66 U/L (40-110); Anion Gap 12 mmol/L (10-20); BUN (Urea Nitrogen) 6 mg/dL (9.8-20.1); Bilirubin, Total 0.4 mg/dL (0.2-1.2); Calc. Creatinine Clearance 0 mL/min (70-130); Calcium 9.2 mg/dL (7.8-10.44); Carbon Dioxide 23 mmol/L (23-31); Chloride 100 mmol/L (98-107); Estimated GFR 83; Glucose 118 mg/dL (80-115); Magnesium 1.6 mg/dL (1.6-2.6); Potassium 3.1 mmol/L (3.5-5.1); Protein, Total 6.5 g/dL (5.8-8.1); Sodium 132 mmol/L (136-145)
[2024-06-27 22:38] LABS: Troponin I 0.023 ng/mL (< 0.028)
[2024-06-27] MEDS ORDERED: Dexamethasone 10 MG/ML VIAL ONE (22:40)
[2024-06-27] MEDS ORDERED: Ondansetron PF 4 MG/2 ML Vial IVP PRN (23:24)
[2024-06-27] MEDS ORDERED: Ondansetron ODT 4 MG TAB PO PRN (23:24)
[2024-06-28] MEDS: Apixaban 5 MG TAB PO SCH ×2 (00:40→09:26)
[2024-06-28] MEDS: Lacosamide 50 mg Tablet PO SCH ×2 (00:40→09:26)
[2024-06-28] MEDS: levETIRAcetam 500 MG TAB PO SCH ×2 (00:40→09:26)
[2024-06-28] MEDS: Dexamethasone 4 mg/ml Vial SLOW IVP SCH (01:05)
[2024-06-28 03:07] VITALS: BMI 27.8
[2024-06-28] MEDS ORDERED: Electrolyte Replacement Protocol 1 EACH FS SCH (05:30)
[2024-06-28 07:03] LABS: #Basophils Less than 0.03 10x3/uL (0.0-0.2); #Eosinophils Less than 0.03 10x3/uL (0.0-0.7); %Basophils 0.4 % (0.0-1.0); %Lymphocytes 15.5 % (21.0-51.0); %Monocytes 1.7 % (0.0-10.0); Hematocrit 35.3 % (36.0-47.0); Hemoglobin 12.4 g/dL (12.0-16.0); Mean Corpuscular HGB CONC 35.1 g/dL (32.0-36.0); Mean Corpuscular Hemoglobin 33.5 pg (27.0-31.0); Mean Corpuscular Volume 95.4 fL (78.0-98.0); Mean Platelet Volume 8.5 fL (7.4-10.4); Platelet Count 387 10x3/uL (130-400); RBC Distribution Width 13.2 % (11.5-14.5)
[2024-06-28 07:33] LABS: Anion Gap 13 mmol/L (10-20); BUN (Urea Nitrogen) 5 mg/dL (9.8-20.1); Calc. Creatinine Clearance 95 mL/min (70-130); Calcium 9.7 mg/dL (7.8-10.44); Carbon Dioxide 25 mmol/L (23-31); Chloride 105 mmol/L (98-107); Estimated GFR 93; Glucose 159 mg/dL (80-115); Potassium 3.6 mmol/L (3.5-5.1); Sodium 139 mmol/L (136-145)
[2024-06-28] MEDS: Potassium Chloride 20 MEQ TAB PO SCH (09:26)
[2024-06-28] MEDS: Carvedilol 3.125 MG TAB PO SCH (09:26)
[2024-06-28] MEDS: Magnesium 2 GM/50 ML(in water) 2 GM in Premix 1 BAG IVPB SCH (09:27)
[2024-06-28] MEDS ORDERED: Magnevist 469MG/ML 20 ML VIAL ONE (09:41)
[2024-06-28] MEDS: Acetaminophen 325 MG TAB PO PRN (12:41)
[2024-06-28] MEDS ORDERED: Dextrose 50% Abboject 50 ML SYRINGE SLOW IVP PRN (16:50)
[2024-06-28] MEDS ORDERED: Glucagon 1 MG/ML KIT IM PRN (16:50)
[2024-06-28] MEDS ORDERED: Dextrose 5% in Water 1,000 ML IV PRN (16:50)
[2024-06-28] MEDS: Insulin Lispro 100 UNIT/ML 10 ML VIAL SC PRN (17:44)
[2024-06-28] MEDS: Famotidine 20 MG TAB PO SCH (20:03)
[2024-06-28] MEDS: Sacubitril 24MG/Valsartan 26 MG TAB PO SCH (20:03)
[2024-06-29] MEDS: Furosemide 20 MG TAB PO SCH (08:45)
[2024-06-29] MEDS: Pantoprazole DR 40 MG TAB PO SCH (08:45)
[2024-06-29] MEDS: Cyanocobalamin (Vitamin B-12) 1,000 MCG TAB PO SCH (08:46)
[2024-06-29] MEDS: Folic Acid 1 MG TAB PO SCH (08:47)
[2024-06-29] MEDS: Magnesium Oxide 400 MG TAB PO SCH (08:47)
[2024-06-29 10:28] VITALS: BP 120/60; TEMP 97.9
== END 2024-06-29 11:05 | disposition home or self-care (01) | DRG 81 ==
LOC: ERS 20:44 → 2NO 22:45 → OBSVTOIN 22:45
PROVIDERS: ADMIT Student in an Organized Health Care Education/Training Program; ATTEND Internal Medicine
DX: G93.6 Cerebral edema (principal); I50.22 Chronic systolic (congestive) heart failure; C79.31 Secondary malignant neoplasm of brain; G40.909 Epilepsy, unspecified, not intractable, without status epilepticus; I11.0 Hypertensive heart disease with heart failure; Z86.718 Personal history of other venous thrombosis and embolism; Z88.0 Allergy status to penicillin; Z79.01 Long term (current) use of anticoagulants; C50.912 Malignant neoplasm of unspecified site of left female breast; Z92.21 Personal history of antineoplastic chemotherapy; Z79.899 Other long term (current) drug therapy; Z92.3 Personal history of irradiation
CPT/HCPCS: 36415; 36416; 70450; 70496; 70498; 70553; 71045; 76376; 80048; 80053; 81001; 83605; 83735; 83880; 84443; 84484; 85025; 85610; 85730; 87086; 93005; 96374; J1100; J1815; J3475; Q9967

== ENCOUNTER 2024-08-07 15:11 | Emergency (ER) | payer MEDICARE, OTHER ==
[2024-08-07 16:23] LABS: #Basophils 0.03 10x3/uL (0.0-0.2); %Basophils 0.6 % (0.0-1.0); %Lymphocytes 20.1 % (21.0-51.0); %Monocytes 15.8 % (0.0-10.0); %Neutrophils 62.3 % (42.0-75.0); Hematocrit 38.5 % (36.0-47.0); Hemoglobin 12.8 g/dL (12.0-16.0); Mean Corpuscular HGB CONC 33.2 g/dL (32.0-36.0); Mean Corpuscular Hemoglobin 31.8 pg (27.0-31.0); Mean Corpuscular Volume 95.5 fL (78.0-98.0); Mean Platelet Volume 8.5 fL (7.4-10.4); Platelet Count 302 10x3/uL (130-400); RBC Distribution Width 14.2 % (11.5-14.5); Red Blood Cell (RBC) Count 4.03 mill/uL (4.20-5.40)
[2024-08-07 16:41] LABS: ALT (SGPT) 9 U/L (8-55); AST (SGOT) 16 U/L (5-34); Albumin 3.8 g/dL (3.4-4.8); Alkaline Phosphatase 58 U/L (40-110); Anion Gap 14 mmol/L (10-20); BUN (Urea Nitrogen) 10 mg/dL (9.8-20.1); Bilirubin, Total 0.5 mg/dL (0.2-1.2); Calc. Creatinine Clearance 0 mL/min (70-130); Calcium 9.3 mg/dL (7.8-10.44); Carbon Dioxide 25 mmol/L (23-31); Chloride 103 mmol/L (98-107); Estimated GFR 93; Globulin 3.2 g/dL (2.4-3.5); Glucose 101 mg/dL (80-115); Potassium 3.6 mmol/L (3.5-5.1); Sodium 138 mmol/L (136-145)
== END 2024-08-07 16:55 | disposition home or self-care (01) ==
LOC: ERS 15:11
DX: R51.9 Headache, unspecified (principal); L59.8 Other specified disorders of the skin and subcutaneous tissue related to radiation; Z55.6 Problems related to health literacy
CPT/HCPCS: 36415; 70450; 80053; 85025

== ENCOUNTER 2024-08-10 11:21 | Outpatient (CLI) | payer MEDICARE, OTHER | END 2024-08-10 11:22 | disposition home or self-care (01) | LOC: SCSMRI 11:21 | PROVIDERS: ATTEND Radiology Radiation Oncology | DX: C79.31 Secondary malignant neoplasm of brain (principal); R60.0 Localized edema | CPT/HCPCS: 70553; 76376 ==

== ENCOUNTER 2024-09-10 11:00 | Outpatient (CLI) | payer MEDICARE, OTHER | END 2024-09-10 11:01 | disposition home or self-care (01) | LOC: PET 11:00 | PROVIDERS: ATTEND Internal Medicine Hematology & Oncology | DX: C50.412 Malignant neoplasm of upper-outer quadrant of left female breast (principal); I89.0 Lymphedema, not elsewhere classified; R91.8 Other nonspecific abnormal finding of lung field; S22.069A Unspecified fracture of T7-T8 vertebra, initial encounter for closed fracture | CPT/HCPCS: 78815; A9552 ==

== ENCOUNTER 2025-04-17 08:45 | Outpatient (CLI) | payer MEDICARE, OTHER | END 2025-04-17 08:46 | disposition home or self-care (01) | LOC: PET 08:45 | PROVIDERS: ATTEND Internal Medicine Hematology & Oncology | DX: C50.412 Malignant neoplasm of upper-outer quadrant of left female breast (principal); I89.0 Lymphedema, not elsewhere classified; D70.8 Other neutropenia; Z79.899 Other long term (current) drug therapy | CPT/HCPCS: 78815; A9552 ==